=== PATIENT | male | born 1940 | race Caucasian/White ===

== ENCOUNTER 2022-03-21 13:11 | Emergency (ER) | payer MEDICARE, SELFPAY ==
[2022-03-21 13:19] VITALS: BP 159/77; PULSE 69; RESP 17; TEMP 36.9; O2SAT 98; BMI 27.4
--- NOTE | 2022-03-21 13:28 | DI.RAD.S_ITS ---
PROCEDURE: XR HIP W PEL IF DONE LT 2V INDICATIONS: fall TECHNIQUE: 2 views of the hip were acquired. COMPARISON: None. FINDINGS: Bones: No fractures or dislocations. No suspicious bony lesions. The visualized pelvic ring appears intact. Total left hip prosthesis in place moderate right hip joint space narrowing. Degenerative changes noted lower lumbar spine Soft tissues: No suspicious soft tissue calcifications or masses. 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 No fracture. Approved by: Juni Bolden M.D. on 03/21/2022 at 14:12
--- NOTE | 2022-03-21 14:18 | DI.RAD.S_ITS ---
PROCEDURE: XR KNEE LT 3V INDICATIONS: Pain from fall TECHNIQUE: 3 views of the knee were acquired. COMPARISON: None. FINDINGS: Bones: No fractures or dislocations. No suspicious bony lesions. Generalized decrease in osseous mineralization noted. Moderate medial lateral compartmental joint space narrowing with meniscal calcifications noted. Patellofemoral joint space is preserved. Soft tissues: No joint effusion. No suspicious soft tissue calcifications. IMPRESSION: Bicompartmental degenerative joint space narrowing with chondrocalcinosis. No fracture. Approved by: Juni Bolden M.D. on 03/21/2022 at 14:17
--- NOTE | 2022-03-21 17:35 | ED_ITS ---
HPI - Extremity Injury (Lower) General Chief Complaint: Extremity Injury, Lower Stated Complaint: GLF on Lside pain has hip replaced dnt feel right Time Seen by Provider: 03/21/22 17:23 Source: patient Mode of arrival: Wheelchair History of Present Illness HPI Narrative: Patient is a 81-year-old history of arthritis presents today with left hip and left knee pain. He says he tripped and fell last night. She denies any dizziness lightheadedness chest pain shortness of breath. No nausea or vomiting. He is able to get up and walk around however he used to use a cane but now needs to use a walker. He takes oxycodone 3 times a day along with Tylenol for his chronic ongoing pain. He previously had a hip replacement with Dr. Chiu many years ago he does see her. He denies any numbness or tingling Related Data Home Medications Medication Instructions Recorded Confirmed aspirin 81 mg tablet,delayed 81 mg PO DAILY 03/21/22 03/21/22 release famotidine 20 mg tablet 20 mg PO BID 03/21/22 03/21/22 finasteride 5 mg tablet 5 mg PO DAILY 03/21/22 03/21/22 mirabegron 50 mg tablet,extended 50 mg PO DAILY 03/21/22 03/21/22 release 24 hr (Myrbetriq) oxycodone 5 mg capsule 5 mg PO Q4H PRN Pain (Scale Score 03/21/22 03/21/22 1-3) oxycodone myristate 13.5 mg 13.5 mg PO DAILY 03/21/22 03/21/22 capsule sprinkle extend release 12hr(DON'T CRUSH) (Xtampza ER) phenytoin 100 mg/4 mL oral 100 mg PO BID 03/21/22 03/21/22 suspension Previous Rx's Medication Instructions Recorded topiramate 25 mg tablet (Topamax) 25 mg PO HS ##60 11/08/15 Allergies Allergy/AdvReac Type Severity Reaction Status Date / Time acetaminophen [ACETAMINOPHEN] Allergy Mild ITCHING Verified 03/21/22 13:25 heparin [HEPARIN] Allergy Unknown Verified 03/21/22 13:25 morphine [MORPHINE] AdvReac Mild NAUSEA Verified 03/21/22 13:25 WITH LARGE DOSES HEPARIN FLUSH Allergy Unknown WAS Uncoded 03/21/22 13:25 RECORDED FROM PREVIOUS HOSPITALIZATION Review of Systems Review of Systems ROS Unobtainable: All systems reviewed & are unremarkable except as noted in HPI and below Patient History Social History Smoking Status: Never smoker Smoking Status: Never smoker alcohol intake frequency: other Substance Use Type: marijuana Exam Initial Vital Signs Initial Vital Signs: Vital Signs Temperature 98.5 F 03/21/22 13:19 Pulse Rate 69 03/21/22 13:19 Respiratory Rate 17 03/21/22 13:19 Blood Pressure 159/77 H 03/21/22 13:19 Pulse Oximetry 98 03/21/22 13:19 Oxygen Delivery Method 03/21/22 13:19 GENERAL: Alert pleasant 81-year-old sitting in chair HEENT: Head atraumatic,EOMI, pupils reactive, face symmetric, moist mucous membranes CARDIOVASCULAR: Regular rate and rhythm without murmurs, rubs or gallops. RESPIRATORY: Breath sounds equal bilaterally, no wheezes rales or rhonchi. ABDOMEN: Soft, nontender. Normoactive bowel sounds all 4 quadrants. No guarding or rebound. EXTREMITIES: Normal range of motion, no clubbing or edema. Neurovascularly intact Pelvis is stable distal. Knee is stable distal pedal pulse intact NEUROLOGICAL: Alert and oriented x4. SKIN: Warm, dry, no laceration, no petechiae, no rashes or lesions. Course Orders Ordered: Discontinued Medications Hydromorphone HCl (Hydromorphone 1 Mg Inj) 1 mg IM NOW ONE Stop: 03/21/22 17:44 Last Admin: 03/21/22 17:52 Dose: 1 mg Documented By: EFE Vital Signs Vital signs: Vital Signs - 8 hr 03/21/22 13:19 Temperature 98.5 F Pulse Rate 69 Respiratory Rate 17 Blood Pressure 159/77 H Pulse Oximetry 98 Oxygen Delivery Method Room Air MDM - Extremity Injury (Lower) Imaging Data Extremity x-ray #1: Radiologist's Impression: Signed Patient: Gildardo Otoole MR#: [id number] : 1940 Acct:[id number] Age/Sex: 81 / M Date of Service: 03/21/22 Loc: ED Accession Number: [id number] ?? Procedure: XR hip w pel if done LT 2V Ordering Provider: Shamika Garcia D.O. PROCEDURE:? XR HIP W PEL IF DONE LT 2V ? INDICATIONS:? fall ? TECHNIQUE:? 2 views of the hip were acquired.? ? COMPARISON:? None. ? FINDINGS:? ? Bones:? No fractures or dislocations.? No suspicious bony lesions.? The visualized pelvic ring appears intact.? Total left hip prosthesis in place moderate right hip joint space narrowing.? Degenerative changes noted lower lumbar spine ? Soft tissues:? No suspicious soft tissue calcifications or masses.? ? IMPRESSION:? ? Degenerative changes and left total hip arthroplasty.? No fracture. ? ? ? Approved by: Juni Bolden M.D. on 03/21/2022 at 14:12? Extremity x-ray #2: Radiologist's Impression: Signed Patient: Gildardo Otoole MR#: [id number] : 1940 Acct:[id number] Age/Sex: 81 / M Date of Service: 03/21/22 Loc: ED Accession Number: [id number] ?? Procedure: XR hip w pel if done LT 2V Ordering Provider: Shamika Garcia D.O. PROCEDURE:? XR HIP W PEL IF DONE LT 2V ? INDICATIONS:? fall ? TECHNIQUE:? 2 views of the hip were acquired.? ? COMPARISON:? None. ? FINDINGS:? ? Bones:? No fractures or dislocations.? No suspicious bony lesions.? The visualized pelvic ring appears intact.? Total left hip prosthesis in place moderate right hip joint space narrowing.? Degenerative changes noted lower lumbar spine ? Soft tissues:? No suspicious soft tissue calcifications or masses.? ? IMPRESSION:? ? Degenerative changes and left total hip arthroplasty.? No fracture. ? ? ? Approved by: Juni Bolden M.D. on 03/21/2022 at 14:12? [facility] Narrative Medical decision making narrative: Patient has chronic ongoing pain and arthritis fell on his left hip last night. He is ambulating with a walker at home he does not usually use a walker he has pain control at home. X-rays are negative. At this time ambulate with walker. Discharge Plan Departure Patient Disposition: Home Clinical Impression: Contusion of hip, right, Knee sprain Instructions: DI for Knee Sprain, DI for Hip Pain Activity Restrictions/Additional Instructions: *You have been diagnosed with left knee sprain and left hip contusion *What to do: At this time ambulate with walker please take pain medications as prescribed. Ice and elevate. Please follow-up with orthopedic or your primary care provider. *Continue to take medications as directed *Follow up with your primary care provider in 2-3 days or call [phone] Chiu on Wednesday to schedule follow-up appointment *Return to ER if you should have increasing pain inability to walk numbness tingling weakness or any new, worsening or concerning symptoms Prescriptions: No Action topiramate [Topamax] 25 MG tablet 25 mg PO HS Qty: 60 0RF aspirin [Aspir-81] 81 mg Tablet,Delayed Release (Dr/Ec) 81 mg PO DAILY famotidine 20 mg Tablet 20 mg PO BID oxycodone 5 mg Capsule 5 mg PO Q4H PRN (Reason: Pain (Scale Score 1-3)) finasteride 5 mg Tablet 5 mg PO DAILY phenytoin 100 mg/4 mL Suspension 100 mg PO BID Myrbetriq 50 mg Tablet Extended Release 24 Hr 50 mg PO DAILY Xtampza ER 13.5 mg Cap,Sprinkl,Er12hr(Dont Crush) 13.5 mg PO DAILY Rx Instructions: must administer with a meal/food Referrals: Kee Osorio MD [Primary Care Provider] -
[2022-03-21] MEDS: HYDROMORPHONE 1 MG INJ IM (17:52)
[2022-03-21 18:40] VITALS: BP 157/67; PULSE 60; RESP 18; O2SAT 95
== END 2022-03-21 18:42 | disposition home or self-care (01) ==
PROVIDERS: Emergency Provider Emergency Medicine; Family Provider Internal Medicine; PCP Internal Medicine
DX: S70.01XA Contusion of right hip, initial encounter (principal); S83.92XA Sprain of unspecified site of left knee, initial encounter; W18.30XA Fall on same level, unspecified, initial encounter
CPT/HCPCS: 73502; 73562; 96372; 99283; 99284; J1170